=== PATIENT | male | born 1940 | race Two or more races ===

== ENCOUNTER 2017-12-21 07:29 | Outpatient (CLI) | payer OTHER ==
[~2017-12-21 07:29] MED LIST: ARICEPT5 MG; AVODART0.5 MG; FLOMAX
== END 2017-12-21 10:00 | disposition home or self-care (01) ==
LOC: SONOGRAMA 07:29
DX: N20.1 Calculus of ureter (principal); N40.1 Benign prostatic hyperplasia with lower urinary tract symptoms; N20.0 Calculus of kidney

== ENCOUNTER 2017-12-21 07:30 | Outpatient (CLI) | payer OTHER | END 2017-12-21 08:00 | disposition home or self-care (01) | LOC: RAD 07:30 | DX: N20.0 Calculus of kidney (principal); N20.1 Calculus of ureter; N40.1 Benign prostatic hyperplasia with lower urinary tract symptoms ==

== ENCOUNTER 2017-12-21 08:04 | Outpatient (CLI) | payer OTHER | END 2017-12-21 15:00 | disposition home or self-care (01) | LOC: LAB 08:04 | DX: N20.0 Calculus of kidney (principal); N40.1 Benign prostatic hyperplasia with lower urinary tract symptoms; E03.8 Other specified hypothyroidism; E78.4 Other hyperlipidemia; I50.89 Other heart failure; R97.20 Elevated prostate specific antigen [PSA]; R73.09 Other abnormal glucose ==

== ENCOUNTER 2018-01-12 08:46 | Outpatient (CLI) | payer OTHER | END 2018-01-12 10:01 | disposition home or self-care (01) | LOC: NUCLEAR 08:46 | DX: R60.0 Localized edema (principal); I50.89 Other heart failure; I25.10 Atherosclerotic heart disease of native coronary artery without angina pectoris; I82.493 Acute embolism and thrombosis of other specified deep vein of lower extremity, bilateral; I87.2 Venous insufficiency (chronic) (peripheral) | CPT/HCPCS: 78452; 93017; 93306; 93970; A9500 ==

== ENCOUNTER → 2019-11-02 08:14 | Outpatient (CLI) | payer OTHER | END | disposition home or self-care (01) | LOC: LAB 08:14 | DX: D50.0 Iron deficiency anemia secondary to blood loss (chronic) (principal); E78.2 Mixed hyperlipidemia; N39.0 Urinary tract infection, site not specified; N40.0 Benign prostatic hyperplasia without lower urinary tract symptoms ==

== ENCOUNTER → 2019-11-15 | Outpatient (CLI) | payer OTHER | END | disposition home or self-care (01) | LOC: RAD 10:51 | DX: N20.1 Calculus of ureter (principal) ==

== ENCOUNTER 2019-12-23 10:35 | Outpatient (CLI) | payer OTHER | END 2019-12-23 10:39 | disposition home or self-care (01) | LOC: RAD 10:35 | DX: N20.0 Calculus of kidney (principal) ==

== ENCOUNTER 2021-06-21 08:00 | Outpatient (CLI) | payer OTHER | END 2021-06-21 08:30 | disposition home or self-care (01) | LOC: PPH VACUNA 08:00 | DX: Z23 Encounter for immunization (principal) ==

== ENCOUNTER 2022-07-28 11:04 | Outpatient (CLI) | payer OTHER | END 2022-07-28 11:11 | disposition home or self-care (01) | LOC: RAD 11:04 | DX: M54.50 Low back pain, unspecified (principal) ==

== ENCOUNTER 2023-03-21 08:39 | Outpatient (CLI) | payer OTHER | END 2023-03-21 08:45 | disposition home or self-care (01) | LOC: LAB 08:39 | PROVIDERS: ATTEND Urology | DX: R31.0 Gross hematuria (principal); N20.0 Calculus of kidney; N40.1 Benign prostatic hyperplasia with lower urinary tract symptoms; N30.00 Acute cystitis without hematuria ==

== ENCOUNTER 2023-03-21 09:38 | Outpatient (CLI) | payer OTHER | END 2023-03-21 09:54 | disposition home or self-care (01) | LOC: TOM 09:38 | PROVIDERS: ATTEND Urology | DX: R33.9 Retention of urine, unspecified (principal); N40.1 Benign prostatic hyperplasia with lower urinary tract symptoms; R31.0 Gross hematuria; N20.0 Calculus of kidney; N30.00 Acute cystitis without hematuria ==

== ENCOUNTER 2023-09-26 09:37 | Outpatient (CLI) | payer OTHER | END 2023-09-26 09:38 | disposition home or self-care (01) | LOC: NUCLEAR 09:37 | PROVIDERS: ATTEND Internal Medicine Sports Medicine | DX: R00.1 Bradycardia, unspecified (principal); R42 Dizziness and giddiness ==

== ENCOUNTER → 2023-11-29 | Emergency (ER) | payer OTHER | END | disposition left against medical advice (07) | LOC: ER 10:08 | DX: Z53.21 Procedure and treatment not carried out due to patient leaving prior to being seen by health care provider (principal) ==

== ENCOUNTER 2024-06-19 12:09 | Outpatient (CLI) | payer OTHER ==
[~2024-06-19 12:09] MED LIST changes: +IBU800 MG PO
== END 2024-06-19 12:15 | disposition home or self-care (01) ==
LOC: RAD 12:09
PROVIDERS: ATTEND Physical Medicine & Rehabilitation
DX: M54.50 Low back pain, unspecified (principal)

== ENCOUNTER 2024-09-12 08:01 | Outpatient (CLI) | payer OTHER ==
[2024-09-12 08:29] LABS: HEMATOCRIT 40.8 % (39.0-48.0); HEMOGLOBIN 13.5 g/dL (13-16.00); MEAN CELL VOLUME 97.2 fL (80.0-100.00); MEAN CORPUSCULAR HEMOGLOBIN 32.2 pg (27.00-32.0); MEAN CORPUSCULAR HGB CONC 33.2 g/dl (32.0-36.0); PLATELET COUNT 197 K/uL (150-450); RED CELL DISTRIBUTION WIDTH 13.7 % (11.5-14.5)
[2024-09-12 09:04] LABS: PH,URINE 5.5 (5.0-8.0); URINE APPEARANCE Clear; URINE BILIRRUBIN Negative (NEGATIVE); URINE BLOOD Negative; URINE COLOR Yellow; URINE GLUCOSE Negative (NEGATIVE); URINE KETONE Negative (NEGATIVE); URINE LEUKOCYTE Negative; URINE NITRATE Negative; URINE PROTEIN Negative (NEGATIVE); URINE UROBILINOGEN 0.2 E.U./dl
[2024-09-12 09:08] LABS: URINE BACTERIA 13.8 uL (0.0-1933); URINE EPITHELIAL CELLS 2.3 uL (0.0-38.8); URINE RBC 5.1 uL (0.0-20.8); URINE WBC 22.4 uL (0.0-23.2)
[2024-09-12 09:37] LABS: CALCIUM 9.4 mg/dL (8.5-10.1); CREATININE SERUM 1.25 mg/dL (0.70-1.30); GFR 55.43; POTASSIUM 4.31 mEq/L (3.5-5.1); PROSTATIC SPECIFIC ANTIGEN 1.37 NG/ML (0.010-4.00)
== END 2024-09-12 08:09 | disposition home or self-care (01) ==
LOC: LAB 08:01
PROVIDERS: ATTEND Urology
DX: N40.1 Benign prostatic hyperplasia with lower urinary tract symptoms (principal); R33.9 Retention of urine, unspecified; N30.00 Acute cystitis without hematuria; R97.20 Elevated prostate specific antigen [PSA]; R31.1 Benign essential microscopic hematuria

== ENCOUNTER 2024-09-16 11:01 | Outpatient (CLI) | payer OTHER | END 2024-09-16 11:12 | disposition home or self-care (01) | LOC: TOM 11:01 | PROVIDERS: ATTEND Urology | DX: N40.1 Benign prostatic hyperplasia with lower urinary tract symptoms (principal); N20.0 Calculus of kidney; R33.9 Retention of urine, unspecified ==

== ENCOUNTER 2025-05-02 08:30 | Outpatient (CLI) | payer OTHER | END 2025-05-02 08:34 | disposition home or self-care (01) | LOC: NUCLEAR 08:30 | PROVIDERS: ATTEND Internal Medicine Sports Medicine | DX: R55 Syncope and collapse (principal) ==